=== PATIENT | female | born 1955 | race Caucasian/White ===

== ENCOUNTER → 2021-05-19 12:59 | Outpatient (CLI) | payer MEDICARE, SELFPAY ==
--- NOTE | ~2021-05-19 | DEXA_ITS ---
Bone Density Report Name: Jacy Landry Age: 66 Sex: Female Ethnicity: White Date of : 1955 Indication: monitoring treatment; height loss; postmenopausal Referring Provider: MICK, ROMEO Study: Bone densitometry was performed. Exam Date: May 19, 2021 Accession number: [id number] Bone Density: Region BMD T-score Z-score Classification AP Spine (L1-L4) 1.149 0.9 2.7 Normal Femoral Neck (Left) 0.728 -1.1 0.4 Osteopenia Total Hip (Left) 0.880 -0.5 0.7 Normal Femoral Neck (Right) 0.652 -1.8 -0.3 Osteopenia Total Hip (Right) 0.838 -0.9 0.4 Normal Total Hip Mean 0.859 -0.7 0.6 Normal World Health Organization criteria for BMD impression classify patients as: Normal (T-score at or above -1.0), Osteopenia (T-score between -1.0 and -2.5), or Osteoporosis (T-score at or below -2.5). 10-year Fracture Risk: FRAX not reported because: Treated for osteoporosis Previous Exams: Region Exam Age BMD T-score BMD Change BMD Change Date g/cm2 vs Baseline vs Previous AP Spine(L1-L4) 05/19/2021 66 1.149 0.9 -0.054* -0.044* 10/30/2014 59 1.192 1.3 -0.010 -0.010 09/29/2011 56 1.202 1.4 Total Hip(Left) 05/19/2021 66 0.880 -0.5 -0.068* -0.069* 10/30/2014 59 0.949 0.1 0.002 0.002 09/29/2011 56 0.947 0.0 Total Hip(Right) 05/19/2021 66 0.838 -0.9 -0.078* -0.081* 10/30/2014 59 0.919 -0.2 0.003 0.003 09/29/2011 56 0.916 -0.2 *Denotes significance at 95% confidence level, LSC for AP Spine = 0.022 g/cm2, LSC for Total Hip = 0.027 g/cm2 Clinical Information Provided by Patient: Is being treated for osteoporosis Has used the following medications: HRT (i.e. estrogen/hormone therapy), Vitamin D Patient maximum height was 64 Menopause Age: 54 Does not regularly consume dairy products Drinks caffeinated beverages Onset of menses at age 14 Number of children 1 Impression: The patient has low bone mass, based on the Right Femoral Neck T-score. The BMD for the AP Spine(L1-L4) decreased, changing by -0.044 since the last DXA exam. The BMD for the Total Hip(Left) decreased, changing by -0.069 since the last DXA exam. The BMD for the Total Hip(Right) decreased, changing by -0.081 since the last DXA exam. Discussion: SIGNIFICANT BONE LOSS OBSERVED. Adherence to therapy (including calcium and vitamin D intake) should be a
== END ==
PROVIDERS: PCP Internal Medicine; Visit Provider Nurse Practitioner
DX: Z78.0 Asymptomatic menopausal state (principal); M85.89 Other specified disorders of bone density and structure, multiple sites
CPT/HCPCS: 77080

== ENCOUNTER 2022-10-23 06:33 | Day surgery (SDC) | payer MEDICARE, SELFPAY ==
[2022-10-16 12:59] VITALS: BMI 32.8
[2022-10-23 07:15] VITALS: BP 131/85; PULSE 76; RESP 20; TEMP 36.2; O2SAT 100
--- NOTE | 2022-10-23 07:17 | WPDANESEPPF ---
Anes - Initial Pre Proc Eval Procedure: Operation Date: 10/23/22 08:30 Proposed Procedures p Screening Colonoscopy - Jared Holloway MD Date/Time: 10/23/22 07:17 Surgeon: Jared Holloway MD Pre Op Diagnosis: History of Colon Polyps Patient Data Age: 67 Gender: F Height: 1.6 m Weight: 84 kg Allergies Allergy/AdvReac Type Severity Reaction Status Date / Time No Known Allergies Allergy Verified 10/23/22 06:15 Home Medications Medication Instructions Recorded Confirmed Type cholecalciferol (vitamin D3) 10 10 mcg PO DAILY 05/23/22 10/16/22 History mcg (400 unit) capsule levothyroxine 125 mcg capsule 125 mcg PO DAILY 05/23/22 10/16/22 History spironolactone 25 mg tablet 25 mg PO DAILY 05/23/22 10/16/22 History sodium,potassium,mag sulfates 17.5 See Rx Instructions PO .COMPLEX 09/25/22 Rx gram-3.13 gram-1.6 gram oral soln #354 mL (Suprep Bowel Prep Kit) Patient hx anesthesia problems: none Family hx anesthesia problems: none Results Review: All pre-operative results and documents have been reviewed as part of the pre-operative evaluation. [facility] Past Medical History Medical History (Updated 10/23/22 @ 07:17 by Austin To MD) Hypothyroidism Obesity Surgical History Surgical History History of (~05/24/90) Hx of appendectomy (~1965) Family History Family History Mother Cancer Arthritis Father Cancer Social History Social History Smoking status: Never smoker Alcohol intake: current Drinks per week: 3 Alcohol use details: 2-3 drinks a week Substance use: never Substance use type: does not use Lack of Transportation: No Lack of Food: Never True Current Housing: I Have Housing Concerned About Future Housing: No Difficulty Paying Gas/Electric Bills: No Difficulty Paying for Meds: No Currently Unemployed: No Education: High School Diploma/GED Difficulty w/ Childcare or Family Care: No Living arrangements: with family Spiritual care concerns: No Anes - Eval Final PreProcedure Day of Procedure 10/23/22 07:17 Patient weight: obese Heart: regular rate and rhythm Lungs: clear to auscultation Airway: Mallampati scale class II Neurological: alert and oriented Last oral intake: >/= 8 hours ASA classification: II Emergent: no Anesthetic plan: proceed Anesthesia type and monitoring: general GIVS and standard monitoring Results Review: All pre-operative results and documents have been reviewed as part of the pre-operative evaluation. Informed Consent: The patient's anesthetic plan and its attendant risks and benefits were discussed with the patient/family/POA. Questions were solicited and answers provided to the satisfaction of the patient/family/POA.
--- NOTE | 2022-10-23 07:32 | P.HP_ITS ---
History of Present Illness History of Present Illness Consent: Risks, benefits, and alternatives have been discussed and questions answered. Patient agrees to proceed with procedure. Chief complaint: History of Colon Polyps Narrative: Jacy Landry is a 67 year old female Presents for screening colonoscopy. Patient's most recent colonoscopy performed in [place] revealed several benign colon polyps. The histology of which is unclear. Patient has a family history of colon cancer in that her father had colon cancer. Patient presents today for screening colonoscopy. She reports that her current weight appetite bowel movements are normal. She has had no bleeding. She denies abdominal pain. Review of Systems Review of Systems: Review of systems noncontributory. [facility] Past Medical History Medical History (Updated 10/23/22 @ 07:34 by Jared Holloway MD) Hypothyroidism Obesity Surgical History Surgical History History of (~05/24/90) Hx of appendectomy (~1965) Family History Family History Mother Cancer Arthritis Father Cancer Social History Social History Smoking status: Never smoker Alcohol intake: current Drinks per week: 3 Alcohol use details: 2-3 drinks a week Substance use: never Substance use type: does not use Lack of Transportation: No Lack of Food: Never True Current Housing: I Have Housing Concerned About Future Housing: No Difficulty Paying Gas/Electric Bills: No Difficulty Paying for Meds: No Currently Unemployed: No Education: High School Diploma/GED Difficulty w/ Childcare or Family Care: No Living arrangements: with family Spiritual care concerns: No Meds Home Medications and Allergies Home Medications Medication Instructions Recorded Confirmed Type cholecalciferol (vitamin D3) 10 10 mcg PO DAILY 05/23/22 10/16/22 History mcg (400 unit) capsule levothyroxine 125 mcg capsule 125 mcg PO DAILY 05/23/22 10/16/22 History spironolactone 25 mg tablet 25 mg PO DAILY 05/23/22 10/16/22 History sodium,potassium,mag sulfates 17.5 See Rx Instructions PO .COMPLEX 09/25/22 Rx gram-3.13 gram-1.6 gram oral soln #354 mL (Suprep Bowel Prep Kit) Allergies Allergy/AdvReac Type Severity Reaction Status Date / Time No Known Allergies Allergy Verified 10/23/22 06:15 Exam Narrative: Physical exam reveals patient to be alert. Vital signs stable. HEENT exam is unremarkable. Patient is anicteric. Lungs are clear to auscultation and percussion. Heart is without murmur or extra sounds. Abdominal exam bowel sounds are present soft nontender with no organomegaly. Digital external rectal exam is normal. Assessment and Plan Assessment and plan (1) Family history of colon cancer in father: Code(s): Z80.0 - Family history of malignant neoplasm of digestive organs Status: Acute Assessment and Plan: Patient has a family history of colon cancer in her father. Patient herself had colon polyps identified 3 years ago. She presents today for surveillance colonoscopy. Further recommendations may be given after endoscopy.
[2022-10-23] MEDS: LACTATED RINGERS 1,000 ML 150 ML IV CONT (07:44)
[2022-10-23 08:47] VITALS: BP 106/61; PULSE 76; RESP 16; O2SAT 100
[2022-10-23 08:57] VITALS: BP 107/69; PULSE 72; RESP 18; O2SAT 100
[2022-10-23 09:07] VITALS: BP 110/72; PULSE 69; RESP 18; O2SAT 100
--- NOTE | 2022-10-23 09:11 | WPDANESPN ---
Anes - Prog Note Post-Op Date/Time: 10/23/22 09:11 Cardiovascular status: normal Respiratory status: normal Airway patency: baseline Mental status: baseline Post-Op hydration status: normal Vital Signs: Last Vital Signs Temp 36.2 C L 10/23/22 07:15 Pulse 72 10/23/22 08:57 Resp 18 10/23/22 08:57 BP 107/69 10/23/22 08:57 Pulse Ox 100 10/23/22 08:57 O2 Del Method Room Air 10/23/22 08:57 Pain Score (VAS): 0/10 I/O: Intake & Output 10/22/22 10/23/22 10/23/22 23:59 07:59 15:59 Intake Total 200 Balance 200 Patient Feedback: Patient satisfied with anesthetic care.
== END 2022-10-23 09:26 | disposition home or self-care (01) ==
PROVIDERS: Visit Provider Internal Medicine Gastroenterology
PROC: 0DJD8ZZ Inspection of Lower Intestinal Tract, Via Natural or Artificial Opening Endoscopic (ICD-10-PCS; CPT 45378; principal; 2022-10-23 08:30)
DX: Z80.0 Family history of malignant neoplasm of digestive organs (principal)
CPT/HCPCS: 45378